=== PATIENT | male | born 1965 | race Caucasian/White ===

== ENCOUNTER 2023-01-13 20:06 | Emergency (ER) | payer OTHER, SELFPAY ==
[2023-01-13 20:15] VITALS: BP 132/88; PULSE 66; RESP 18; TEMP 36.2; O2SAT 95
--- NOTE | 2023-01-13 20:23 | CRLHL7_ITS ---
For Patients: As a result of the Century Cures Act, medical imaging exams and procedure reports are released immediately into your electronic medical record. You may view this report before your referring provider. If you have questions, please contact your health care provider. Indication: Deformed 4th finger and distal interphalangeal joint.. Technique: Left hand, 4th phalanx, 3 views. Comparison: None. Findings: Bones: Alignment is normal. No fractures or bone lesions. Joint spaces: The AP dislocation. The distal phalanx is displaced posteriorly in relation to the middle phalanx.. Soft tissues: Soft tissue swelling at the DIP.. Impression: Dislocation at the DIP. No definite acute fractures identified. Dictated by Jessica Gallegos MD @ 01/13/2023 9:13:28 PM (Electronically Signed)
--- NOTE | 2023-01-13 21:48 | CRLHL7_ITS ---
For Patients: As a result of the Cures Act, medical imaging exams and procedure reports are released immediately into your electronic medical record. You may view this report before your referring provider. If you have questions, please contact your health care provider. INDICATION: Postreduction COMPARISON: Left finger from today at 2058 hours FINDINGS: The left left finger was examined at 1000 hours with PA, lateral and oblique views for a total of three views. The previously seen dorsally dislocated 4th DIP joint has been reduced to anatomic alignment. There is no sign of any fracture. There is no sign of fracture or dislocation elsewhere. There is no sign of radiopaque foreign body. No degenerative disease is seen. IMPRESSION: Normal left 4th finger following reduction of the dorsally dislocated 4th DIP joint. Dictated by Morris Martinez MD @ 01/13/2023 10:09:04 PM (Electronically Signed)
--- NOTE | 2023-01-14 00:01 | ED.GENADULT ---
HPI - General Adult General Date Seen: 01/14/23 Chief complaint: Extremity Pain/Injury, Upper Stated complaint: L hand ring finger injury Time Seen by Provider: 01/13/23 20:22 Source: patient Mode of arrival: ambulatory Limitations: no limitations History of Present Illness HPI narrative: Patient is a 57-year-old male who was rolling logs as part of an exercise regimen. He injured his left 4th finger and complains of pain and deformity. No other injuries or complaints. He is right-handed. Related Data Home Medications Medication Instructions Recorded Confirmed albuterol sulfate 90 mcg/actuation g inhalation 04/25/22 05/05/22 aerosol inhaler omeprazole 20 mg capsule,delayed 20 mg PO QDAY 04/25/22 05/05/22 release paroxetine HCl 10 mg tablet ea PO 04/25/22 05/05/22 Allergies Allergy/AdvReac Type Severity Reaction Status Date / Time Sulfa (Sulfonamide Allergy Mild Rash Verified 04/25/22 13:41 Antibiotics) PFSH PFS Social History Smoking Status: Never smoker How often do you have a drink containing alcohol: 2-3 times a week AUDIT-C Alcohol total score: 3 Non-prescribed substance use: denies use Exam Narrative: Exam Narrative: Vital signs reviewed In general, alert, nontoxic male. Extremities: Examination of the left hand shows obvious deformity of the D IP joint of the 4th finger. Distal CMS is intact. Skin: Warm dry well perfused. Const: Vital Signs, click to edit/add: Vital Signs - 24 hr 01/13/23 20:15 Temperature 97.1 F L Pulse Rate [Right Pulse Oximeter] 66 Respiratory Rate 18 Blood Pressure [Ri ght Upper Arm] 132/88 Pulse Oximetry 95 Oxygen Delivery Me thod Room Air Documenting provider has reviewed patient's vital signs: yes Course Course Hospital Course: X-rays of the left 4th finger confirm a dislocation of the D IP joint with dorsal displacement of the distal fragment. No obvious fracture. Final radiology read is in agreement. Discussed options with him of either digital block or reduction without anesthesia. He really does not like needles and so he preferred just have the finger reduced. I was able to reduce this quickly with just 1 attempt, he tolerated this well. Repeat x-rays show reduction of the dislocation, continued to show no obvious fracture. He is placed in a finger splint, recommend orthopedic follow-up for just a quick recheck in a week or so. Ibuprofen or Tylenol, ice as needed. Vital Signs Vital signs: Initial Vital Signs Temperature 97.1 F L 01/13/23 20:15 Temperature Source Temporal Artery Scan 01/13/23 20:15 Pulse Rate 66 01/13/23 20:15 Respiratory Rate 18 01/13/23 20:15 Blood Pressure 132/88 01/13/23 20:15 Blood Pressure Mean 102 01/13/23 20:15 Blood Pressure Position Sitting 01/13/23 20:15 Pulse Oximetry 95 01/13/23 20:15 Oxygen Delivery Method Room Air 01/13/23 20:15 Vital Signs Temperature 97.1 F L 01/13/23 20:15 Pulse Rate 66 01/13/23 20:15 Respiratory Rate 18 01/13/23 20:15 Blood Pressure 132/88 01/13/23 20:15 Pulse Oximetry 95 01/13/23 20:15 Oxygen Delivery Method Room Air 01/13/23 20:15 Temperature 97.1 F L 01/13/23 20:15 Pulse Rate 66 01/13/23 20:15 Respiratory Rate 18 01/13/23 20:15 Blood Pressure 132/88 01/13/23 20:15 Pulse Oximetry 95 01/13/23 20:15 Oxygen Delivery Method Room Air 01/13/23 20:15 Discharge Plan Discharge Clinical Impression: Dislocation of finger Patient Disposition: Home, Self-Care Condition: Improved Instructions: Finger Dislocation (ED) Additional Instructions: Wear splint for the next few days. Recheck with Ortho in about a week, [phone] to schedule. Ibuprofen, Tylenol, ice as needed. Repeat x-rays are normal, I do not see any evidence of fracture. Prescriptions: No Action omeprazole 20 mg capsule,delayed release(DR/EC) 20 mg PO QDAY paroxetine HCl 10 mg tablet PO Patient Comments: TAKE 1 TABLET BY MOUTH EVERY MORNING albuterol sulfate 90 mcg/actuation HFA aerosol inhaler inhalation Patient Comments: INHALE 2 PUFFS BY MOUTH 4 TIMES DAILY IF NEEDED FOR WHEEZING 1ST CHOICE. Follow Up/Referrals: Lorenza Wayne, MACHINE OPERATOR HELPER [Staff Physician] - Stand Alone Forms: [facility] Info Instructions
== END 2023-01-13 22:18 | disposition home or self-care (01) ==
PROVIDERS: Emergency Provider Emergency Medicine
DX: S63.295A Dislocation of distal interphalangeal joint of left ring finger, initial encounter (principal)
CPT/HCPCS: 26770; 73140; 99283

== ENCOUNTER 2024-05-24 18:29 | Emergency (ER) | payer BC, SELFPAY ==
[2024-05-24 18:33] VITALS: BP 145/91; PULSE 64; RESP 18; TEMP 36.9; O2SAT 97; BMI 32.9
--- NOTE | 2024-05-24 18:50 | CRLHL7_ITS ---
For Patients: As a result of the Cures Act, medical imaging exams and procedure reports are released immediately into your electronic medical record. You may view this report before your referring provider. If you have questions, please contact your health care provider. INDICATION: Cough, shortness of breath, cough shortness of breath TECHNIQUE: Chest radiograph 2 views COMPARISON: None FINDINGS: Mediastinum: The mediastinum is normal in appearance. The heart silhouette is normal in size and morphology. Lung: Both lungs are unremarkable in appearance. No sign of pleural effusion seen. No pneumothorax is identified. Bone and Soft tissue: Unremarkable for age. IMPRESSION: 1. No acute cardiopulmonary disease is seen. Dictated by: Daniel Weir MD @ 05/24/2024 19:25:24 (Electronically Signed)
--- NOTE | 2024-05-24 19:00 | ED.GENADULT ---
HPI - General Adult General Date Seen: 05/24/24 Chief complaint: Shortness of Breath/Dyspnea Stated complaint: difficulty breathing/throat closed Time Seen by Provider: 05/24/24 18:43 Source: patient Mode of arrival: ambulatory Limitations: no limitations History of Present Illness HPI narrative: Patient is a 59-year-old generally healthy male here with his for evaluation of difficulty breathing. He says throughout the day today he had been feeling like his breathing was getting a little heavy, he had had a little bit of a cough, had gone home and made some kind of T that is supposed to be good for breathing. He then had an intense coughing jag followed by a couple of minutes where he did not feel like he could get air in, it folic a store was closed. He has an inhaler which he uses for intermittent asthma symptoms, so he tried that and then those symptoms of feeling like his throat was closed resolved. He continues to have a little bit of a cough and a little shortness of breath. He has not had a fever that he knows of but he thought he felt kind of warm earlier. He has not had any sore throat, congestion, runny nose etcetera. Was not exposed to any significant allergens today. Does not smoke. Related Data Home Medications ?Medication ?Instructions ?Recorded ?Confirmed albuterol sulfate 90 mcg/actuation g inhalation 04/25/22 05/05/22 aerosol inhaler omeprazole 20 mg capsule,delayed 20 mg PO QDAY 04/25/22 05/24/24 release paroxetine HCl 10 mg tablet 10 mg PO 04/25/22 05/05/22 atorvastatin 20 mg tablet 20 mg PO QPM 05/24/24 05/24/24 Previous Rx's ?Medication ?Instructions ?Recorded amoxicillin 500 mg capsule 1,000 mg (2 x 500 mg) PO TID #28 05/24/24 caps Allergies Allergy/AdvReac Type Severity Reaction Status Date / Time Sulfa (Sulfonamide Allergy Mild Rash Verified 04/25/22 13:41 Antibiotics) Review of Systems Status of ROS: Reports: 6 or more systems reviewed and unremarkable except as noted in History and below [facility] Social History Smoking Status: Never smoker Do you use any of these nicotine containing products: None Second hand tobacco smoke exposure: No How often do you have a drink containing alcohol: 2-3 times a week AUDIT-C Alcohol total score: 3 Non-prescribed substance use: denies use Exam Narrative: Exam Narrative: Vital signs as noted above. In general, an alert, well-appearing patient. Breathing easily. Head: Normocephalic, atraumatic. Eyes: Pupils are equal reactive. Extraocular movements are full. Conjunctivae are normal. ENT: Mucous membranes are moist. Throat is normal. No edema, erythema, exudate. Airway patent. Neck: Supple without lymphadenopathy. No stridor. Heart: Regular rate and rhythm. No murmur or rub. Lungs: He has some rhonchi bilaterally, breath sounds are slightly decreased at the right base, some crackles in the left midlung. No wheezing. No increased work of breathing. Abdomen: Soft and nontender. No organomegaly. Extremities: Well perfused. No edema. No calf tenderness. Pulses intact. Neurologic: Patient is alert and oriented to person and place. Speech is fluent. Face is symmetric. Moves all extremities equally. Affect: Normal. Skin: Warm and dry. Well perfused. Const: Vital Signs, click to edit/add: Vital Signs - 24 hr 05/24/24 18:33 Temperature 98.5 F Pulse Rate [Right Pulse Oximeter] 64 Respiratory Rate 18 Blood Pressure [Ri ght Upper Arm] 145/91 H Pulse Oximetry 97 Oxygen Delivery Me thod Room Air Documenting provider has reviewed patient's vital signs: yes Course Course ED Course: Chest x-ray by my review is negative. Final radiology read likewise negative, link below. I do hear adventitious lung sounds on the left, and therefore I am going to treat him clinically for pneumonia. We talked about his episode of feeling like his throat was closing, it sounds like he had some brief laryngospasm associated with this coughing spell. He is immunized for per test this, but discussed that azithromycin would be an appropriate choice if this is an attenuated case of pertussis. Otherwise he is well appearing, O2 sats are normal, reasonable to send home with antibiotics amoxicillin and azithromycin prescribed through [facility] and patient's pharmacy. Discussed reasons to return such as high fevers, shaking chills, significant difficulty breathing, vomiting etcetera. Primary care follow-up if not improving over the next 7-10 days. Inhaler as needed. Vital Signs Vital signs: Initial Vital Signs Temperature 98.5 F 05/24/24 18:33 Temperature Source Temporal Artery Scan 05/24/24 18:33 Pulse Rate 64 05/24/24 18:33 Respiratory Rate 18 05/24/24 18:33 Blood Pressure 145/91 H 05/24/24 18:33 Blood Pressure Mean 109 H 05/24/24 18:33 Blood Pressure Position Sitting 05/24/24 18:33 Pulse Oximetry 97 05/24/24 18:33 Oxygen Delivery Method Room Air 05/24/24 18:33 Vital Signs Temperature 98.5 F 05/24/24 18:33 Pulse Rate 64 05/24/24 18:33 Respiratory Rate 18 05/24/24 18:33 Blood Pressure 145/91 H 05/24/24 18:33 Pulse Oximetry 97 05/24/24 18:33 Oxygen Delivery Method Room Air 05/24/24 18:33 Temperature 98.5 F 05/24/24 18:33 Pulse Rate 64 05/24/24 18:33 Respiratory Rate 18 05/24/24 18:33 Blood Pressure 145/91 H 05/24/24 18:33 Pulse Oximetry 97 05/24/24 18:33 Oxygen Delivery Method Room Air 05/24/24 18:33 Medical Decision Making Imaging Data Chest x-ray: Radiologist's impression: Patient: Gina Blackmon MR#: [id number] : 1965 Acct:[id number] Loc: ED Service Date: 05/24/[address]: Ordering Physician: Hope Stockton M.D. Date of Service: 05/24/24 Procedure(s): XR chest 2V Accession Number(s): [id number] cc: Hope Stockton M.D.; Provider,Not a Local~ For Patients: As a result of the Cures Act, medical imaging exams and procedure reports are released immediately into your electronic medical record. You may view this report before your referring provider. If you have questions, please contact your health care provider. INDICATION: Cough, shortness of breath, cough shortness of breath TECHNIQUE: Chest radiograph 2 views COMPARISON: None FINDINGS: Mediastinum: The mediastinum is normal in appearance. The heart silhouette is normal in size and morphology. Lung: Both lungs are unremarkable in appearance. No sign of pleural effusion seen. No pneumothorax is identified. Bone and Soft tissue: Unremarkable for age. IMPRESSION: 1. No acute cardiopulmonary disease is seen. Dictated by: Daniel Weir MD @ 05/24/2024 19:25:24 Discharge Plan Discharge Clinical Impression: Community acquired pneumonia Patient Disposition: Home, Self-Care Condition: Stable Instructions: Community Acquired Pneumonia (ED) Additional Instructions: Antibiotics as prescribed. Chest x-ray looks normal today, but you do have some abnormal sounds in your left lung when I listen. I do not hear any wheezing at this time but you can certainly use your inhaler if you needed. If you feel your breathing status is worsening, you have high fevers, shaking chills, vomiting, increasing weakness etcetera, return for re-evaluation at any time. Follow-up with your regular doctor if not improved over the next 7-10 days. Prescriptions: New amoxicillin 500 mg capsule 1,000 mg PO TID Qty: 28 0RF No Action omeprazole 20 mg capsule,delayed release(DR/EC) 20 mg PO QDAY paroxetine HCl 10 mg tablet 10 mg PO Patient Comments: TAKE 1 TABLET BY MOUTH EVERY MORNING albuterol sulfate 90 mcg/actuation HFA aerosol inhaler inhalation Patient Comments: INHALE 2 PUFFS BY MOUTH 4 TIMES DAILY IF NEEDED FOR WHEEZING 1ST CHOICE. atorvastatin 20 mg tablet 20 mg PO QPM Follow Up/Referrals: Provider,Not a Local [Primary Care Provider] - Stand Alone Forms: [facility] Info Instructions
--- OUTSIDE RECORDS SUMMARY | 2024-05-24 19:37 | XMS_ITS | Clinical Summary ---
Author Organization [facility] Address [place], [place] [address] Care Team Providers Care Barrel Stave Inspector Name Role Phone Jumana Juan Primary Care Provider Allergies Active Allergy Reactions Criticality Noted Date Comments Sulfa (Sulfonamide Antibiotics) Rash 03/2010 Medications Medication Sig Dispensed Refills Start Date End Date Status albuterol HFA (PRO-AIR; VENTOLIN; PROVENTIL) 90 mcg/actuation inhalerIndications: Viral URI with cough INHALE 2 PUFFS BY MOUTH 4 TIMES DAILY IF NEEDED FOR WHEEZING 1ST CHOICE. 8.5 Each 2 12/23/2021 Active ESOMEPRAZOLE MAGNESIUM ORAL 07/30/2008 Active valACYclovir (VALTREX) 1 gram tablet TAKE 2 TABS BY MOUTH AT ONSET AND 2 TABS 12 HOURS LATER 12/01/2022 Active PARoxetine (PAXIL) 10 mg tabletIndications:A djustment disorder with anxiety TAKE 1 TABLET BY MOUTH EVERY MORNING 100 Tablet 3 05/12/2024 Active atorvastatin (LIPITOR) 20 mg tabletIndications:H yperlipidemia, unspecified hyperlipidemia type TAKE 1 TABLET BY MOUTH AT BEDTIME 100 Tablet 3 05/12/2024 Active PARoxetine (PAXIL) 10 mg tabletIndications:A djustment disorder with anxiety Take 1 Tablet (10 mg) by mouth every morning. 100 Tablet 3 02/16/2023 4 Discontinued atorvastatin (LIPITOR) 20 mg tabletIndications:H yperlipidemia, unspecified hyperlipidemia type TAKE 1 TABLET BY MOUTH AT BEDTIME 90 Tablet 02/11/2024 4 Discontinued Active Problems Problem Noted Date Diagnosed Date Adenomatous colon polyp 10/28/2016 Overview (10/29/2021): Colonoscopy 10/2016 adenoma and serrated adenoma repeat in 5 years Colonoscopy 10/2021 SSA, repeat in 5 years CHELITA 07/02/2012 AHI-5, worst in REM supine 2011 Encounters Date Type Department Care Team Description 05/08/2024 Refill [facility] [address] [place] [address] Edwina Gonzalez MD Refill Request (Atorvastatin) 05/07/2024 Refill [facility] [address] [place] [address] Edwina Gonzalez MD Refill Request (Paroxetine) from Last 3 Months Immunizations Name Administration Dates Next Due Influenza, IIV3 (Age >=3 years) 06/07/2002 Tdap 01/12/2020,07/29/2012 Zoster (Shingrix-RZV, recombinant) 02/16/2023 Family History Medical History Relation Name Comments Cancer-prostate Father fro m cancer Heart Disease Father stent before a ge 55 Good Health Sister Relation Name Status Comments Father Mother Alive Sister Alive Social History Tobacco Use Types Packs/Day Years Used Date Smoking Tobacco: Never Smokeless Tobacco: Never Tobacco Cessation:Counseling Given: Yes Alcohol Use Standard Drinks/Week Comments Yes 6 (1 standard drink = 0.6 oz pur e alcohol) PHQ-2 Answer Date Recorded PHQ-2 TOTAL SCORE 0 02/16/2023 Social Connections Answer Date Recorded Frequency of Communication with Friends and Fami ly 0 02/19/2024 Financial Resource Strain Answer Date R ecorded Difficulty of Paying Living Expenses 3 02/19/2024 Difficulty of Paying Living Expenses Not on file 02/19/2024 Food Insecurity Answer Date Recorded Do you worry your food will run out before you are able to buy more? 1 02/19/2024 Transportation Needs Answer Date Record ed Lack of Transportation (Medical) 1 02/19/2024 Housing Stability Answer Date Recorded What is your housing situation today? 1 02/19/2024 Sex and Gender Information Value Date Recorded Sex Assigned at Not on file Gender Identity Not on file Sexual Orientation Not on file Obstetrics History Last Filed Vital Signs Vital Sign Reading Time Taken Comments Blood Pressure 124/83 02/19/2024 10:46 AM CDT Pulse 60 02/19/2024 10:46 AM CDT Temperature 36.8 ??C (98.3 ??F) 09/30/2021 11:[address] Respiratory Rate 16 11/05/2017 9:22 AM CDT Oxygen Saturation 98% 02/19/2024 10:46 AM CDT Inhaled Oxygen Concentration - - Weight 96.8 kg (213 lb 6.4 oz) 02/19/2024 10:46 AM CDT Height 167.6 cm (5' 6) 02/19/2024 10:46 AM CDT Body Mass Index 34.44 02/19/2024 10:46 AM CDT Plan of Treatment Health Maintenance Due Date Last Done Comments HIV for age 15-65 1981 Hepatitis C screening for age 18-79 1984 Zoster (shingles) series for age 50+ (2 of 2) 04/13/2023 02/16/2023 Depression screening for age 12+ 02/19/2024 02/18/2023, 02/16/2023, 02/15/2023, Additional history exists COVID-19 vaccine series (2023- season) 2024 11/21/2020, 10/24/2020 Influenza for age 50-64 04/03/2024 06/07/2002 BMI (ht and wt on same day) for age 18+ 02/18/2025 02/19/2024, 02/16/2023, 07/20/2019, Additional history exists Colonoscopy through age 75 10/25/202610/25, 10/25/2021, 10/24/2016, Additional history exists Lipids for age 45-75 02/18/2029 02/19/2024, 02/16/2023, 02/01/2016, Additional history exists Tetanus booster 01/11/2030 01/12/2020, 07/29/2012 Tdap Completed 01/12/2020, 07/29/2012 Pneumococcal series for age 6-64 Aged Out No longer eligible based on patient's age to complete this topic Procedures Procedure Name Priority Date/Time Associated Diagnosis Comments LIPID PANEL W REFLEX MEASURED LDL Routine 02/19/2024 11:43 AM CDT Hyperlipidemia, unspecified hyperlipidemia type COLONOSCOPY 10/25/2021 8:55 AM CDT from Last 3 Months or Most Recently Relevant to Health Maintenance Results * LIPID PANEL W REFLEX MEASURED LDL (02/19/2024 11:43 AM CDT) CHOLESTEROL,TOTAL 145 100 - 199 mg/dL 02/20/2024 5:04 AM CDT [facility] Comment: Cholesterol, Total Reference Ranges Desirable <200 mg/dL Borderline 200-239 mg/dL High >=240 mg/dL TRIGLYCERIDES 98 <150 mg/dL 02/20/2024 5:04 AM CDT [facility] HDL CHOLESTEROL 48 >40 mg/dL 5:04 AM CDT [facility] NON-HDL CHOLESTEROL 97 <145 mg/dl 02/20/2024 5:04 AM CDT [facility] CHOL/HDL RATIO 3.02 <4.50 02/20/2024 5:04 AM CDT [facility] LDL CHOLESTEROL 77 <=130 mg/dL 02/20/2024 5:04 AM CDT [facility] VLDL CHOLESTEROL 20 <=30 mg/dL 02/20/2024 5:04 AM CDT [facility] PROVIDER ORDERED STATUS RANDOM 02/20/2024 5:04 AM CDT [facility] Blood BLOOD SPECIMEN / Unknown Venipuncture / Unknown 02/19/2024 11:43 AM CDT 02/19/2024 11:44 AM CDT Edwina Gonzalez MD [facility] [address] [place] [address], * COLONOSCOPY (10/25/2021 8:55 AM CDT) 10/25/2021 8:55 AM CDT Narrative Transcriptions Tyrell Menon MD - 10/25/2021 9:53 AM CDT Patient Name: Gina Blackmon Procedure Date: 10/25/2021 Gender: Male Date of : 1965 Admit Type: Outpatient Procedure: Colonoscopy Proceduralist: Tyrell Menon MD , Joy Dixon RN(Nurse) Indications/Pre-Op Diagnosis: High risk colon cancer surveillance:Personal history of sessile serrated colon polyp(less than 10 mm in size) with no dysplasia, Last colonoscopy: October 2016 Medications: Fentanyl 100 micrograms IV, Midazolam 2 mgIV, The level of sedation administered wasmoderate Procedure Description: The patient had risks, benefits and alternatives explained to andgave informed consent. The patient had a stable cardiopulmonary status and judged an adequate candidate for conscious sedation. The Colonoscope was passed through the anus and advanced to thececum, identified by appendiceal orifice and ileocecal valve. Thecolonoscopy was performed without difficulty. The patient tolerated the procedure well. The quality of the bowel preparation was good. The ileocecal valve, appendiceal orifice, and rectum were photographed. Complications: No immediate complications. Estimated Blood Loss & Specimen: Estimated blood loss: none. Specimen collected - Yes and sent to Laboratory Findings: The perianal and digital rectal examinations were normal. A 4 mm polyp was found in the ascending colon. The polyp was sessile. The polyp was removed with a cold snare. Resection and retrieval were complete. The exam was otherwise without abnormality on direct and retroflexion views. Impressions/Post-Op Diagnosis: - One 4 mm polyp in the ascending colon, removed with a cold snare. Resected and retrieved. - The examination was otherwise normal on direct and retroflexionviews. Recommendation: - Patient has a contact number available for emergencies. The signsand symptoms of potential delayed complications were discussed with the patient. Return to normal activities tomorrow. Written discharge instructions were provided to the patient. - Resume previous diet. - Continue present medications. - Await pathology results. - Repeat colonoscopy for surveillance based on pathology results. Moderate Sedation: Moderate (conscious) sedation was administered by the endoscopy nurse and supervised by the endoscopist. The following parameters were monitored: oxygen saturation, heart rate, respiratory rate, blood pressure, adequacy of pulmonary ventilation and reponse to care. Please refer to the patient's medical record flowsheets and nursing notes for moderate sedation details. Total physician intraservice time was 18 minutes. Tyrell Menon MD 10/25/2021 9:53:12 AM This report has been signed electronically. Note Initiated On: 10/25/2021 8:55 AM Procedure Code(s): --- Professional --- 82249, Colonoscopy, flexible; with removalof tumor(s), polyp(s), or other lesion(s) bysnare technique Diagnosis Code(s): --- Professional --- Z86.010, Personal history of colonicpolyps K63.5, Polyp of colon CPT copyright 2020 [employer]. All rights reserved. The codes documented in this report are preliminary and upon screen operator reviewmay be revised to meet current compliance requirements. Scope In: 9:25:05 AM Scope Withdrawal Time 0 hours 10 minutes 50 seconds Scope Out: 9:41:52 AM Tyrell Menon MD PROCEDURE ORD from Last 3 Months or Most Recently Relevant to Health Maintenance Insurance Payer Benefit Plan / Group Subscriber ID Effect loy Dates Phone Address Type [employer] [id number] 07/05/2018-Pres ent [address] [address] [place] [address] [employer] [id number] 09/07/2015-Prese nt [address] [address] [place] [address] [employer] [id number] 05/12/2016-Pre sent [address] [address] [place] [address] [employer] [facility] [id number] 08/03/2023-Prese nt [address] [place] [address] Care Teams Barrel Stave Inspector Relationship Specialty Start Date End Date Jumana Juan PA [address] [place] [address] PCP - General Family Practice 06/22/12
== END 2024-05-24 19:36 | disposition home or self-care (01) ==
LOC: ED 19:34
PROVIDERS: Emergency Provider Emergency Medicine
DX: J18.9 Pneumonia, unspecified organism (principal)
CPT/HCPCS: 71046; 99283; 99284